=== PATIENT | female | born 1955 | race Native Hawaiian/Other Pacific Islander ===

== ENCOUNTER 2018-07-18 08:57 | Outpatient (CLI) | payer BC | END 2018-07-18 08:58 | disposition home or self-care (01) | LOC: CARDIO 08:57 | DX: I10 Essential (primary) hypertension (principal) ==

== ENCOUNTER 2018-10-15 12:59 | Emergency (ER) | payer BC ==
[2018-10-15 12:59] VITALS: BMI 30.9
[2018-10-15 13:27] VITALS: BP 137/94; PULSE 72; RESP 18; TEMP 98; O2SAT 97
--- NOTE | 2018-10-15 14:16 | ED PDOC ---
Arrival/HPI - General Chief Complaint: Lower Extremity Problem/Injury Time Seen by Provider: 10/15/18 13:15 Historian: Patient - History of Present Illness Narrative History of Present Illness (Text): 10/15/18 14:12 A 63 year old female, whose past medical history includes diabetes, hypertension, and hyperlipidemia, presents to the emergency department complaining of right toe pain radiating up foot for the past 4 days. Patient reports similar symptoms years ago that lasted for a few days and had resolved on its own. Never seeked medical attention before. Thinks she has gout however never was diagnosed. Patient denies any fever, chills, joint pain, decreased/limited to right foot/toe, or any other complaints at this time. PMD: Dr. Corea Time/Duration: < week (4 days) Past Medical History - Provider Review Nursing Documentation Reviewed: Yes - Infectious Disease Hx of Infectious Diseases: None - Reproductive Menopause: Yes - Cardiac Hx Hypertension: Yes - Pulmonary Hx Respiratory Disorders: No - Endocrine/Metabolic Hx Diabetes Mellitus Type 2: Yes - Musculoskeletal/Rheumatological Hx Falls: No - Psychiatric Hx Depression: No Hx Emotional Abuse: No Hx Physical Abuse: No Hx Substance Use: No - Past Surgical History Past Surgical History: No Previous - Surgical History Hx Coronary Artery Bypass Graft: Yes - Anesthesia Hx Anesthesia Reactions: No - Suicidal Assessment Feels Threatened In Home Enviroment: No Family/Social History - Physician Review Nursing Documentation Reviewed: Yes Family/Social History: No Known Family HX Smoking Status: Unknown If Ever Smoked Hx Alcohol Use: No Hx Substance Use: No Hx Substance Use Treatment: No Allergies/Home Meds Allergies/Adverse Reactions: Allergies No Known Allergies Allergy (Verified 12/10/11 16:10) Home Medications: Home Meds Medication Instructions Recorded Confirmed MetFORMIN [glucOPHAGE] 1,000 mg PO DAILY 07/18/18 10/15/18 Valsartan [Diovan] 160 mg PO DAILY 07/18/18 10/15/18 Metoprolol Tartrate [Lopressor] 25 mg PO DAILY 10/15/18 10/15/18 Rosuvastatin Calcium [Crestor] 10 mg PO DAILY 10/15/18 10/15/18 Review of Systems - Physician Review All systems were reviewed & negative as marked: Yes - Review of Systems Constitutional: absent: Fevers, Night Sweats Musculoskeletal: Other (right toe pain, no trauma, no limited/decreased ROM) Physical Exam Vital Signs Reviewed: Yes Vital Signs Temp Pulse Resp BP Pulse Ox 10/15/18 13:23 98 F 72 18 137/94 H 97 Temperature: Afebrile Blood Pressure: Normal Pulse: Regular Respiratory Rate: Normal Appearance: Positive for: Well-Appearing, Non-Toxic, Comfortable Pain Distress: None Mental Status: Positive for: Alert and Oriented X 3 - Systems Exam Lower Extremity: Present: NORMAL PULSES, Normal ROM, Tenderness (right great toe ttp), Swelling (right great toe, slightly warm to touch), Erythema (right great toe ), Neurovascularly Intact, Capillary Refill < 2 s. No: Edema, Deformity, Temperature Abnormalties Neurological: Present: GCS=15, CN II-XII Intact, Speech Normal, Motor Func Grossly Intact Skin: Present: Warm, Dry, Normal Color. No: Rashes Psychiatric: Present: Alert, Oriented x 3, Normal Insight, Normal Concentration Medical Decision Making ED Course and Treatment: 10/15/18 14:16 Impression: 63 year old female with right toe pain radiating up foot. Plan: -- Right Foot X-Ray -- Labs -- Toradol -- Reassess and disposition Progress Notes: Labs : wbc 16, uric acid 6.5 XR R foot : no fracture, no dislocation. On reevaluation, patient reports improvement of pain. On exam, patient remains awake alert and oriented 3 in no acute distress. Results and diagnosis d/w the patient. Case d/w podiatry resident Dr. Lyn Centeno, agrees with current plan and recommends antibiotics keflex to cover for possible infection due to elevated wbc, otherwise states that the patient can be d/c with outpt f/u. Advised to follow up with primary care physician and podiatry referral in 1-2 days without fail. Advised to take medication as prescribed. Return to the emergency room at any time for any new or worsening symptoms. Patient states she fully agrees with and understands discharge instructions. St ates that she agrees with the plan and disposition. Verbalized and repeated discharge instructions and plan. I have given the patient opportunity to ask any additional questions. - RAD Interpretation Radiology Orders: 10/15/18 13:50 FOOT RIGHT 3 VIEWS ROUTINE [RAD] Stat - Medication Orders Current Medication Orders: Discontinued Medications Ketorolac Tromethamine (Toradol) 30 mg IVP STAT STA Stop: 10/15/18 13:52 - PA / [employer]PERVISOR / Resident Statement MD/DO has reviewed & agrees with the documentation as recorded. - Scribe Statement The provider has reviewed the documentation as recorded by the Richard Griffiths Provider Scribe Attestation: All medical record entries made by the Scribe were at my direction and personally dictated by me. I have reviewed the chart and agree that the record accurately reflects my personal performance of the history, physical exam, medical decision making, and the department course for this patient. I have also personally directed, reviewed, and agree with the discharge instructions and disposition. Disposition/Present on Arrival - Present on Arrival Any Indicators Present on Arrival: No History of DVT/PE: No History of Uncontrolled Diabetes: No Urinary Catheter: No History of Decub. Ulcer: No History Surgical Site Infection Following: None - Disposition Have Diagnosis and Disposition been Completed?: Yes Diagnosis: Gout Disposition: HOME/ ROUTINE Disposition Time: 15:30 Patient Plan: Discharge Condition: STABLE Discharge Instructions (ExitCare): Gout (DC) Additional Instructions: Thank you for letting us take care of you today. You were treated for gout. The emergency medical care you received today was directed at your acute symptoms. If you were prescribed any medication, please fill it and take as directed. It may take several days for your symptoms to resolve. Return to the Emergency Department if your symptoms worsen, do not improve, or if you have any other problems. Please contact your doctor in 2 days for re-evaluation and follow up / or call one of the physicians/clinics you have been referred to that are listed on the Patient Visit Information form that is included in your discharge packet. Bring any paperwork you were given at discharge with you along with any medications you are taking to your follow up visit. Our treatment cannot replace ongoing medical care by a primary care provider (PCP) outside of the emergency department. Thank you for allowing the [facility] team to be part of your care today. If you had an X-Ray : A Radiologist will review the ED reading if any change in treatment is needed we will contact you. Prescriptions: Cephalexin [Keflex] 500 mg PO Q6 #28 capsule Colchicine [Colcrys] 0.6 mg PO DAILY #10 tab Indomethacin [Indocin] 25 mg PO TID PRN #30 cap PRN Reason: Pain, Moderate (4-7) Referrals: Clemente Corea MD [Primary Care Provider] - Follow up with primary Ryan Lucero DPM [Staff Provider] - Follow up with primary Forms: [employer] ([place]ux[place]ish), WORK NOTE
[2018-10-15 14:49] LABS: ALB/GLOB RATIO 1.2 (1.1-1.8); ALBUMIN 4.6 g/dL (3.0-4.8); ALT/SGPT 23 U/L (7-56); AST/SGOT 27 U/L (14-36); BLOOD UREA NITROGEN 14 mg/dL (7-21); CALCIUM 9.4 mg/dL (8.4-10.5); GFR NON-AFRICAN AMERICAN > 60; URIC ACID 6.5 mg/dL (2.5-6.2)
[2018-10-15] MEDS ORDERED: COLCHICINE 0.6 MG CAPSULE PO ONE ×2 (14:51→16:00)
[2018-10-15 14:55] LABS: BASO # 0.03 K/mm3 (0.0-2.0); BASO % 0.2 % (0.0-3.0); EOS # 0.4 (0.0-0.7); EOS % 2.4 % (1.5-5.0); HEMOGLOBIN 14.1 g/dL (12.0-16.0); LYMPH # 4.1 (1.2-3.4); LYMPH % 25.3 % (22.0-35.0); MEAN CORPUSCULAR HEMOGLOBIN 28.8 pg (25.0-35.0); MEAN CORPUSCULAR HGB CONC 32.7 g/dl (31.0-37.0); MEAN PLATELET VOLUME 10.1 fl (7.0-11.0); MONO # 0.9 (0.1-0.6); MONO % 5.5 % (1.0-6.0); RBC 4.9 10^6/uL (3.5-6.1); RED CELL DISTRIBUTION WIDTH 13.2 % (11.5-14.5); WHITE BLOOD COUNT 16.2 10^3/uL (4.5-11.0)
--- NOTE | 2018-10-15 15:43 | RAD ---
PROCEDURE: Right foot radiographs. HISTORY: pain COMPARISON: None available. FINDINGS: BONES: No acute displaced fracture. JOINTS: No dislocation. SOFT TISSUES: Unremarkable. No evidence of radiopaque foreign body. OTHER FINDINGS: None. IMPRESSION: No acute displaced fracture, dislocation, or significant joint effusion identified. If symptoms persist, or if there is continued clinical concern, x-ray follow-up in 7-10 days should be considered.
== END 2018-10-15 16:12 | disposition home or self-care (01) ==
LOC: ED 12:59
DX: M10.9 Gout, unspecified (principal); I10 Essential (primary) hypertension; E11.9 Type 2 diabetes mellitus without complications; E78.5 Hyperlipidemia, unspecified
CPT/HCPCS: 73630; 80053; 84550; 85025; 96374; 99283; J1885